=== PATIENT | female | born 1955 | race Caucasian/White ===

== ENCOUNTER 2023-03-05 11:26 | Emergency (ER) | payer OTHER, MEDICAID ==
[~2023-03-05] VITALS: Ht 162.6 cm; Wt 82.6 kg
[2023-03-05 11:39] VITALS: BP_SYST 133; PULSE 73; RESP 20; TEMP 98.3; O2SAT 98
[2023-03-05] MEDS ORDERED: cefTRIAXone 1 GM in LIDOCAINE 1%, 20 ML MDV 2.1 ML IM ONE (12:00)
[2023-03-05] MEDS ORDERED: IBUP-1969 PO ×2 (12:01→12:17)
[2023-03-05] MEDS ORDERED: NITR-85 PO (12:01)
[2023-03-05 12:09] LABS: COVID19 ANTIGEN SOFIA FIA NEGATIVE (NEGATIVE)
[2023-03-05 12:10] LABS: INFLUENZA TYPE A Negative (NEGATIVE); INFLUENZA TYPE B NEGATIVE (NEGATIVE)
[2023-03-05] MEDS ORDERED: ALBMDI INH (12:17)
[2023-03-05] MEDS ORDERED: PSEU30TA36 PO (12:17)
[2023-03-05] MEDS ORDERED: IPRATROPIUM/ALBUTEROL SULFATE 3 ML AMPUL.NEB (DUONEB) INH ONE (12:45)
[2023-03-05 13:30] VITALS: O2SAT 97
== END 2023-03-05 13:36 | disposition home or self-care (01) ==
LOC: SED 11:26
DX: J40 Bronchitis, not specified as acute or chronic (principal); Z79.899 Other long term (current) drug therapy; Z20.822 Contact with and (suspected) exposure to COVID-19
CPT/HCPCS: 36415; 71045; 94640; 99284